=== PATIENT | female | born 1955 | race Caucasian/White ===

== ENCOUNTER → 2017-10-13 | Outpatient (CLI) | payer BC, OTHER ==
[~2017-10-13] MED LIST: ACET-1966 PO; BIOT1TAB12 PO; CHOL400C10 PO; DULO30CA35 PO; LEVO25TA61 PO; OMEG-96 PO; ROSU5TAB8 PO; SPIR25TA78 PO
--- NOTE | 2017-10-14 10:28 | RADIOLOGY IMAGING REPORT ---
FACILITY: [facility] - [place] PATIENT NAME: JING ESCOBAR : [id number] MR: [id number] V: [id number] EXAM DATE: [id number] ORDERING PHYSICIAN: TRISTAN ESTRADA TECHNOLOGIST: Madeline Balderrama PROCEDURE:BILATERAL DIGITAL SCREENING MAMMOGRAM WITH CAD ASSISTED INTERPRETATION & 3D TOMOSYNTHESIS COMPARISON:Prior mammograms 09/29/16, 06/06/15, 05/24/14, 05/22/13, 05/18/12, 05/13/11. INDICATIONS:SCREENING FINDINGS: Mildly heterogeneous fibroglandular tissue is seen throughout the breasts. The parenchymal pattern has remained stable allowing for difference in mammographic technique & patient positioning. There is no evidence of malignant appearing mass, malignant appearing calcifications or other secondary sign of malignancy in either breast. DIAGNOSTIC CATEGORY 1--NEGATIVE. RECOMMENDATIONS: ROUTINE MAMMOGRAM AND CLINICAL EVALUATION. IMPRESSION: BIRADS 1: Negative No significant abnormality is seen. Dictated by: Caitlin Casanova M.D. on 10/13/2017 at 16:18 Transcribed by: KUSHAL on 10/13/2017 at 16:21 Approved by: Caitlin Casanova M.D. on 10/14/2017 at 10:27 [facility]
== END ==
LOC: MAMO 07:13
PROVIDERS: ATTEND Nurse Practitioner Family
DX: Z12.31 Encounter for screening mammogram for malignant neoplasm of breast (principal)
CPT/HCPCS: 77063; 77067

== ENCOUNTER → 2018-11-04 | Outpatient (CLI) | payer BC ==
[~2018-11-04] MED LIST changes: -SPIR25TA78 PO; +SPIR25TA80 PO
--- NOTE | 2018-11-09 09:39 | RADIOLOGY IMAGING REPORT ---
FACILITY: [facility] - [place] PATIENT NAME: JING ESCOBAR : [id number] MR: [id number] V: [id number] EXAM DATE: [id number] ORDERING PHYSICIAN: TRISTAN ESTRADA TECHNOLOGIST: Kaya Elmore PROCEDURE: BILATERAL DIGITAL SCREENING MAMMOGRAM WITH CAD ASSISTED INTERPRETATION & 3D TOMOSYNTHESIS REASON FOR STUDY: Screening FAMILY HISTORY OF BREAST CANCER: Maternal cousin BREAST PROCEDURES/TREATMENTS: None COMPARISON: 09/29/16, 06/06/15, 05/24/14, 05/22/13, 05/18/12 VIEWS OBTAINED: Bilateral 2D & 3D full field CC & MLO BREAST DENSITY: The breasts are heterogeneously dense which can obscure small masses. MAMMOGRAM FINDINGS: The parenchymal pattern has remained stable allowing for difference in mammographic technique & patient positioning. ASSESSMENT: BIRADS 1: Negative. DIAGNOSTIC CATEGORY 1--NEGATIVE. RECOMMENDATIONS: ROUTINE MAMMOGRAM AND CLINICAL EVALUATION. Dictated by: Caitlin Casanova M.D. on 11/08/2018 at 12:30 Transcribed by: ANDRE on 11/08/2018 at 13:16 Approved by: Caitlin Casanova M.D. on 11/09/2018 at 9:38 [facility]
== END ==
LOC: MAMO 02:24
PROVIDERS: ATTEND Nurse Practitioner Family
DX: Z12.31 Encounter for screening mammogram for malignant neoplasm of breast (principal); Z80.3 Family history of malignant neoplasm of breast
CPT/HCPCS: 77063; 77067